=== PATIENT | male | born 1955 | race Caucasian/White ===

== ENCOUNTER → 2016-11-24 | Outpatient (CLI) | payer OTHER ==
[2016-11-24 14:37] LABS: ESTIMATED AVERAGE GLUCOSE 243 mg/dl; HA1C FLAG Normal (Normal)
[2016-11-24 15:25] LABS: ALT/SGPT 49 U/L (12-78); AST/SGOT 16 U/L (15-37); BLOOD UREA NITROGEN 17 mg/dl (7-18); BUN/CREATININE RATIO 15.6 (10-20); CALCIUM 8.7 mg/dl (8.5-10.1); CARBON DIOXIDE 29 mmol/L (21-32); CHLORIDE 106 mmol/L (98-107); CHOLESTEROL 161 mg/dl (0-200); GLUCOSE 228 mg/dl (70-99); POTASSIUM 3.6 mmol/L (3.5-5.1); SODIUM 143 mmol/L (136-145)
[2016-11-24 15:27] LABS: CHOLESTEROL/HDL RATIO 3.5; HDL CHOLESTEROL 46 mg/dl; LDL CHOLESTEROL CALCULATED 86 mg/dl; TRIGLYCERIDES 145 mg/dl (0-150); VERY LOW DENSITY LIPOPROT CALC 29 mg/dl
== END | disposition home or self-care (01) ==
LOC: C.LABMFLN 09:56
PROVIDERS: ATTEND Family Medicine
DX: I10 Essential (primary) hypertension (principal)

== ENCOUNTER → 2017-08-06 | Outpatient (CLI) | payer OTHER ==
[2017-08-06 13:49] LABS: HEMOGLOBIN A1C 9.5 % (4.5-5.6)
[2017-08-06 15:55] LABS: ALBUMIN 3.6 gm/dl (3.4-5.0); AST/SGOT 20 U/L (15-37); BLOOD UREA NITROGEN 16 mg/dl (7-18); CALCIUM 9.1 mg/dl (8.5-10.1); CARBON DIOXIDE 31 mmol/L (21-32); CHOLESTEROL 147 mg/dl (0-200); CREATININE 1.02 mg/dl (0.60-1.40); GLUCOSE 172 mg/dl (70-99); POTASSIUM 3.5 mmol/L (3.5-5.1); SODIUM 138 mmol/L (136-145)
[2017-08-06 15:58] LABS: ALKALINE PHOSPHATASE 69 U/L (45-117); ALT/SGPT 41 U/L (12-78); LDL CHOLESTEROL CALCULATED 74 mg/dl
== END | disposition home or self-care (01) ==
LOC: C.LABMFLN 07:30
PROVIDERS: ATTEND Family Medicine
DX: E11.9 Type 2 diabetes mellitus without complications (principal); I10 Essential (primary) hypertension

== ENCOUNTER 2025-01-25 15:28 | Inpatient (IN) ==
[2025-01-25] MEDS: SODIUM CHLORIDE 0.9% 500 ML IV ONE (16:18)
[2025-01-25 16:27] LABS: Hematocrit (blood only) 36.9 % (42.0-52.0); Hemoglobin 12.4 g/dl (14.0-18.0); Immature Granulocytes # (auto) 0.07 K/uL (0.01-0.20); Immature Granulocytes % (auto) 0.5 %; Mean Corpuscular Hemoglobin 29.2 pg (25.0-34.0); Mean Corpuscular Volume 87.0 fL (80.0-100.0); Platelet Count 192 K/uL (130-400); RDW Standard Deviation 42.0 fL (36.4-46.3); Red Blood Count 4.24 M/uL (4.70-6.10); White Blood Count 12.78 K/ul (4.8-10.8)
[2025-01-25] MEDS: SODIUM CHLORIDE 0.9% 1,000 ML IV SCH (16:37)
--- NOTE | 2025-01-25 16:40 | Emergency Department Note ---
Impression & Plan Acute UTI (urinary tract infection), Weakness, Nausea & vomiting ED Provider Note NAME: ISRAEL SHI AGE: 69 SEX: Male INFORMANT: Patient and family ED PROVIDER(S): Beck Doyle MD CHIEF COMPLAINT: Urinary symptoms PLAN: Disposition: Admitted Outpatient prescription management: none Referral: None MEDICAL DECISION MAKING: Patient presented because of urinary symptoms and increased symptoms concerning for systemic involvement. IV was established. Blood work obtained. Patient was not hypotensive. He did have a leukocytosis. Patient was found to be mildly dehydrated and had low magnesium level. Bilirubin was elevated but this has been the case in the past. Culture is still pending on his previous urinalysis. Patient did not suffer any significant injury from his fall. Patient underwent CT imaging of the abdomen pelvis. He was found to have a cystitis and enlarged prostate. His systemic symptoms are concerning that this may be ascending or even possibly bacteremic. Patient was treated with IV Rocephin. Blood cultures were obtained first and I discussed further evaluation and management in the hospital. Patient and family were in agreement. Consultation was made with the [facility] hospitalist service. Patient was evaluated in the ER and admitted for further management. Of note the patient's family was informed about the pulmonary nodule in the right. and daughter state that he follows with pulmonology and this is a known problem for him. Care/management discussed with: Hospitalist, manager mechanical Level of care consideration(s): After review of the information above and other included data, I feel the patient requires escalation of care to admission. Triage Nursing notes: reviewed and agree them. Vital Signs: reviewed and remarkable for no significant abnormalities Additional History obtained from: Family Chronic Medical/Social Conditions affecting care: none Prior/ Outside/ External records reviewed: none Differential Diagnosis: Infection, dehydration, metabolic abnormality, hypo/hyperglycemia, electrolyte disturbance, anemia, hypoxia, cardiac sources, intracerebral event, toxicologic, neurologic, as well as other pathologies. Diagnostics, independently interpreted by me: ECG: Twelve-lead ECG reveals a normal sinus rhythm at [address] abnormality. No ST elevation. Cardiac Monitoring: Cardiac monitoring ordered by me: The patient was placed on continuous cardiac monitoring and observed. It revealed a normal sinus rhythm at 86 beats per minute without ectopy or evidence of dysrhythmia. Medical decision rules: none Imaging studies: CT scan as above. HPI: 69 year old Male arrives for evaluation of urinary symptoms. Patient was seen very early this morning because of urinary retention. He had a Norris catheter placed and was diagnosed with a UTI. He was discharged on oral Bactrim. He did have a dose here and a another dose at home. Patient states he was not feeling well. He had an episode of nausea and vomiting. He became generally weak. He had a minor fall off of his tailgate where he was sitting but did not suffer any injury. He notes discomfort in the suprapubic region. This is his second episode of urinary retention and catheter placement. Overall patient also noted feeling feverish and chilled. Pt denies LOC, headache, visual changes, neck pain, chest pain, breathing difficulties, back pain, melena, hematochezia, numbness, weakness, lymphadenopathy, rash, or other complaints. PAST MEDICAL HISTORY: See Below, urinary retention, diabetes PAST SURGICAL HISTORY: See Below, SOCIAL HISTORY: See Below, HOME MEDICATIONS: See Below ALLERGIES: See Below VITALS: See Below PHYSICAL EXAMINATION: GENERAL: Awake, tired-appearing, in no distress HENT: Normocephalic, atraumatic. Oropharynx unremarkable. EYES: Normal conjunctiva. Sclera non-icteric. NECK: Inspection normal. Non-tender. Supple. No nuchal rigidity. FROM. No masses. RESPIRATORY: Clear to auscultation. No wheezes. No rales. Normal respiratory effort. CARDIAC: Normal rate. Normal rhythm. No murmurs. No rubs. Extremities warm and well perfused. Pulses equal. No JVD. GI: Soft, non-distended. Suprapubic tenderness to palpation. No rebound or guarding. No masses. RECTAL: Deferred. MUSCULOSKELETAL: Atraumatic. Chest examination reveals no tenderness. The back is symmetrical on inspection without obvious abnormality. There is no CVA tenderness to palpation. No joint edema. LOWER EXTREMITIES: Calves are equal size bilaterally and non-tender. 1+ edema. No discoloration. NEURO: Normal sensorium. No focal sensory or motor deficits noted. SKIN: No rash or jaundice noted. PROCEDURES: none CRITICAL CARE: none OBSERVATION NOTE: none Past Med/Surg History Problem List (Updated 01/25/25 @ 16:40 by Beck Doyle MD) Nausea & vomiting (Acute) Weakness (Acute) Acute UTI (urinary tract infection) (Acute) Acute UTI (Acute) Acute urinary retention (Acute) Hematuria (Acute) Acute urinary retention (Acute) Upper airway cough syndrome Spermatocele Erectile dysfunction Hydrocele Atherogenic dyslipidemia Aortic root enlargement S/P pneumonectomy Occasional tremors Memory loss Neuroendocrine carcinoma Encounter for pre-operative examination Pulmonary nodule Onychomycosis Dizziness of unknown etiology Colon cancer screening Cough Allergic rhinitis with postnasal drip Obesity Exertional shortness of breath Multiple pulmonary nodules Left upper lobe pulmonary nodule Anemia Mass of right lung Skin candidiasis Urinary incontinence BPH with obstruction/lower urinary tract symptoms HTN, goal below 140/80 (Chronic) Diabetes mellitus type II, controlled (Chronic) NIDDM Medical History Pulmonary nodule Onychomycosis Hx Hx of myocardial infarction Possible old infarct noted on 10/2022 ECG > PCP ordered stress test to further evaluation (done 11/2022) which was unremarkable BPH (benign prostatic hyperplasia) Obesity Surgical History History of lobectomy of lung LLL History of ankle surgery Reconstructive as child (r/t crush injury) History of tonsillectomy Family History Grandfather Myocardial infarction Denies family history of Ovarian cancer Prostate cancer Breast cancer Colorectal cancer Social History Smoking Status: Never smoker Second Hand Exposure: Yes (hx growing up); Do You Dip or Chew Tobacco: No; Hx Alcohol Use: Yes Hx Substance Use: No Preferred Language: Macanese Communication Ability: Effective Visual Impairment: No Limitations Hearing Ability: Normal Shellfish Checker Required: No Beliefs That Will Affect Care: None marital status: Current Living Situation: Spouse current occupational status: retired 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 Feels Safe at Home: Yes Dental Care, Regularly: No Physical Activity Frequency: Does not Exercise Seatbelt Use: sometimes Sunscreen Use: No Assistive Devices: Glasses Allergies Allergies Allergy/AdvReac Type Severity Reaction Status Date / Time lisinopril AdvReac cough Verified 12/21/24 11:44 Home Meds Home Medications Medication Instructions Recorded Confirmed mecobalamin (vitamin B12) 1,000 1,000 mcg PO QAM 08/24/20 08/27/25 mcg chewable tablet omega-3 fatty acids 1,000 mg 1,000 mg PO HS 01/23/20 01/25/25 capsule (Fish Oil Concentrate) Magnesium, Calcium, Zinc 1 tab PO QAM 08/26/23 01/25/25 cholecalciferol (vitamin D3) 25 25 mcg PO QAM 08/26/23 01/25/25 mcg (1,000 unit) capsule (Vitamin D3) multivitamin (Daily Multi-Vitamin 1 tab PO QAM 08/26/23 01/25/25 tablet) dulaglutide 4.5 mg/0.5 mL 4.5 mg subcut WK 01/25/25 01/25/25 subcutaneous pen injector (Trulicity) sitagliptin phosphate 50 1 tab PO BID 01/25/25 01/25/25 mg-metformin 1,000 mg tablet (Janumet) vitamin E acetate 500 mg PO DAILY 01/25/25 01/25/25 Previous Rx's Medication Instructions Recorded cranberry 500 mg capsule 500 mg PO DAILY #90 caps 01/03/19 lancets (OneTouch UltraSoft #50 ea 11/16/19 Lancets) blood sugar diagnostic (OneTouch #100 ea 02/08/24 Verio test strips) losartan 100 1 tab PO QAM #90 tabs 06/20/24 mg-hydrochlorothiazide 25 mg tablet fesoterodine 4 mg tablet,extended 4 mg PO DAILY #90 tabs 08/29/24 release 24 hr (Toviaz) mirabegron 50 mg tablet,extended 50 mg PO DAILY #30 tabs 11/04/24 release 24 hr (Myrbetriq) alfuzosin 10 mg tablet,extended 10 mg PO DAILY #90 tabs 11/22/24 release 24 hr amlodipine 10 mg tablet (Norvasc) 10 mg PO QAM #90 tabs 12/05/24 sulfamethoxazole 800 1 tab PO BID 10 days #20 tabs 01/25/25 mg-trimethoprim 160 mg tablet (Bactrim DS) Results & Data (ED) Vital Signs Vital Signs - 24 hr 01/25/25 15:32 Temperature 37.3 C Temperature Source Oral Pulse Rate 86 Respiratory Rate 18 Respiratory Effort / Characteristics Non-Labored Spontaneous Respiratory Depth Normal Respiratory Pattern Regular Blood Pressure 138/83 Blood Pressure Mean 101 Pulse Oximetry 96 Oxygen Delivery Method Room Air Sepsis Recent Fever Within 48 Hours No Sepsis New/Unexplained Change in Mental Status N/A Sepsis Action Taken by Nursing No Action Required Laboratory Data 01/25/25 16:05 01/25/25 16:05 Lab Results 01/25/25 Range/Units 16:05 WBC 12.78 H (4.8-10.8) K/ul RBC 4.24 L (4.70-6.10) M/uL Hgb 12.4 L (14.0-18.0) g/dl Hct 36.9 L (42.0-52.0) % MCV 87.0 (80.0-100.0) fL MCH 29.2 (25.0-34.0) pg MCHC 33.6 (32.0-36.0) g/dL RDW Std Deviation 42.0 (36.4-46.3) fL RDW Coeff of Latoya 13.4 (11.5-14.5) % Plt Count 192 (130-400) K/uL MPV 9.5 (9.4-12.4) fL Immature Gran % (Auto) 0.5 % Neut % (Auto) 86.3 % Lymph % (Auto) 6.8 % Tift % (Auto) 5.7 % Eos % (Auto) 0.5 % Baso % (Auto) 0.2 % Neut # (Auto) 11.02 H (1.40-6.50) K/uL Lymph # (Auto) 0.87 L (1.20-3.40) K/uL Tift # (Auto) 0.73 H (0.11-0.59) K/uL Eos # (Auto) 0.07 (0.00-0.50) K/uL Baso # (Auto) 0.02 (0.00-0.20) K/uL Immature Gran # (Auto) 0.07 (0.01-0.20) K/uL Sodium 137 (136-145) mmol/L Potassium 3.6 (3.5-5.1) mmol/L Chloride 97 L (98-107) mmol/L Carbon Dioxide 30 (21-32) mmol/L Anion Gap 10 (3-11) BUN 14 (6-23) mg/dl Creatinine 1.11 (0.6-1.4) mg/dl Est Cr Clr Drug Dosing 76.0 ml/min eGFR 71.44 BUN/Creatinine Ratio 12.6 (10-20) Glucose 264 H (70-99(Fasting)) mg/dl Lactate 1.4 (0.4-2.0) mmol/L Calcium 9.4 (8.6-10.3) mg/dl Magnesium 1.4 L (1.7-2.4) mg/dl Total Bilirubin 1.9 H (0.2-1.0) mg/dl AST 10 L (13-39) U/L ALT 8 (7-52) U/L Alkaline Phosphatase 86 (34-104) U/L Troponin I High Sens 9.4 (0-20) pg/ml Total Protein 7.4 (6.0-8.3) gm/dl Albumin 3.9 (3.4-5.0) gm/dl Globulin 3.5 (2.5-4.0) gm/dl Albumin/Globulin Ratio 1.1 (0.9-2) TSH 0.639 (0.300-4.500) uIu/ml Administered Medications Sodium Chloride (Nss) 1,000 mls @ 125 mls/hr IV .Q8H MARK Stop: 01/28/25 15:44 Last Admin: 01/25/25 16:37 Dose: 125 mls/hr Documented By: CAP Discontinued Medications Sodium Chloride (Nss) 500 mls @ 999 mls/hr IV .Q31M ONE Stop: 01/25/25 16:15 Last Infusion: 01/25/25 16:51 Dose: Infused Documented By: Admin: 01/25/25 16:18 Dose: 999 mls/hr Documented By: CAP Ceftriaxone Sodium (Rocephin) 2,000 mg in 50 mls @ 100 mls/hr IV NOW STA Stop: 01/25/25 16:53 Last Infusion: 01/25/25 17:22 Dose: Infused Documented By: Admin: 01/25/25 16:51 Dose: 100 mls/hr Documented By: CEF Magnesium Sulfate/Dextrose (Magnesium Sulfate / D5w) 1 gm in 100 mls @ 50 mls/hr IV ONE ONE Stop: 01/25/25 18:44 Last Admin: 01/25/25 17:22 Dose: 50 mls/hr Documented By: CEF Imaging Data Radiologist's Impression: Abdomen/Pelvis CT 01/25/25 16:24 CT ABDOMEN and PELVIS without INTRAVENOUS CONTRAST HISTORY: Abdominal pain TECHNIQUE: CT abdomen and pelvis without contrast. IV CONTRAST: None ENTERIC CONTRAST: None. COMPARISON: CT abdomen pelvis November 01, 2024 FINDINGS: LOWER CHEST: Mild cardiomegaly and small pericardial fluid, unchanged. Pulmonary nodular densities in the right upper and middle lobes measure up to 5 mm (series 2, image 1-17). LIVER: Small subcentimeter hypodensities are too small to characterize but likely represent cysts or hemangiomas. Hepatomegaly GALLBLADDER/BILIARY: Unremarkable gallbladder. No abnormal biliary dilatation. SPLEEN: Unremarkable. PANCREAS: Unremarkable. ADRENALS: Unremarkable. KIDNEYS: Redemonstrated large cortical and parapelvic cysts of the kidneys. The renal parenchyma is mildly atrophic. No stones or hydronephrosis identified. PERITONEUM/RETROPERITONEUM. No lymphadenopathy by size criteria. No aortic aneurysm. GASTROINTESTINAL: No obstruction. Normal appendix. REPRODUCTIVE: Prostamegaly with enlarged prostate impinging upon the urinary bladder outlet. URINARY BLADDER: Decompressed with Norris catheter in place. There are inflammatory changes to the uterine bladder with wall thickening and perivesical fat stranding. Small foci of intraluminal air likely relate to current instrumentation ABDOMINAL WALL: Small fat-containing inguinal and umbilical hernias. BONES: No acute findings. IMPRESSION: Prostamegaly with enlarged prostate impinging upon the urine bladder outlet. Urinary bladder is decompressed with Norris catheter in place. The urinary bladder is inflamed, in keeping with cystitis. No urolithiasis, hydronephrosis or hydroureter. Pulmonary nodular densities in the right lung measuring up to [address] thorax surveillance in 3 months Electronically signed by Tyler Chavez 01-25-2025 5:05 PM Discharge Plan Visit Data Chief Complaint: Urinary Symptoms Stated Complaint: URINARY PROBLEM ED Provider: Beck Doyle Discharge Problem: Acute UTI (urinary tract infection), Weakness, Nausea & vomiting Patient Disposition: Home - Self-Care Condition: Fair Forms Stand Alone Forms: [facility], Important Visit Information Prescriptions Prescriptions: No Action (DME) lancets [OneTouch UltraSoft Lancets] Misc See Rx Instructions .ROUTE .MEDSUPPLY Qty: 50 5RF Rx Instructions: As directed- once daily (DME) OneTouch Verio test strips Strip See Rx Instructions .ROUTE .MEDSUPPLY Qty: 100 3RF Rx Instructions: As directed- once daily E11.9 losartan-hydrochlorothiazide 100-25 mg tablet 1 tab PO QAM Qty: 90 3RF fesoterodine [Toviaz] 4 mg tablet extended release 24 hr 4 mg PO DAILY Qty: 90 3RF mirabegron [Myrbetriq] 50 mg tablet extended release 24 hr 50 mg PO DAILY Qty: 30 2RF amlodipine [Norvasc] 10 mg tablet 10 mg PO QAM Qty: 90 3RF cranberry 500 mg capsule 500 mg PO DAILY Qty: 90 3RF omega-3 fatty acids [Fish Oil Concentrate] 1,000 mg capsule 1,000 mg PO HS mecobalamin (vitamin B12) 1,000 mcg tablet,chewable 1,000 mcg PO QAM alfuzosin 10 mg tablet extended release 24 hr 10 mg PO DAILY Qty: 90 3RF Rx Instructions: administer after the same meal each day Janumet 50-1,000 mg tablet 1 tab PO BID Trulicity 4.5 mg/0.5 mL pen injector 4.5 mg subcut WK Rx Instructions: INJECT 4.5MG UNDER THE SKIN EVERY 7 DAYS vitamin E acetate 500 mg PO DAILY Magnesium, Calcium, Zinc 1 tab PO QAM multivitamin [Daily Multi-Vitamin] tablet 1 tab PO QAM cholecalciferol (vitamin D3) [Vitamin D3] 25 mcg (1,000 unit) Capsule 25 mcg PO QAM sulfamethoxazole-trimethoprim [Bactrim DS] 800-160 mg tablet 1 tab PO BID 10 Days Qty: 20 0RF Referrals Referrals: Micha Cunningham DO [Primary Care Provider] -
[2025-01-25 16:44] LABS: Alanine Aminotransferase 8.0 U/L (7-52); Albumin Globulin Ratio 1.1 (0.9-2); Alkaline Phosphatase 86.0 U/L (34-104); Anion Gap 10.0 (3-11); Bilirubin,Total 1.9 mg/dl (0.2-1.0); Blood Urea Nitrogen 14.0 mg/dl (6-23); Calcium 9.4 mg/dl (8.6-10.3); Carbon Dioxide 30.0 mmol/L (21-32); Chloride 97.0 mmol/L (98-107); Creatinine Clr Calc Pharmacy 76.0 ml/min; Globulin 3.5 gm/dl (2.5-4.0); Glucose 264.0 mg/dl (70-99(Fasting)); Magnesium 1.4 mg/dl (1.7-2.4); Potassium 3.6 mmol/L (3.5-5.1); Sodium 137.0 mmol/L (136-145); Total Protein 7.4 gm/dl (6.0-8.3)
[2025-01-25] MEDS: cefTRIAXone SODIUM 2,000 MG/50 ML BAG IV STA (16:51)
[2025-01-25 16:59] LABS: Thyroid Stimulating Hormone 0.639 uIu/ml (0.300-4.500)
--- NOTE | 2025-01-25 17:18 | CT Scan Report ---
CT ABDOMEN and PELVIS without INTRAVENOUS CONTRAST HISTORY: Abdominal pain TECHNIQUE: CT abdomen and pelvis without contrast. IV CONTRAST: None ENTERIC CONTRAST: None. COMPARISON: CT abdomen pelvis November 01, 2024 FINDINGS: LOWER CHEST: Mild cardiomegaly and small pericardial fluid, unchanged. Pulmonary nodular densities in the right upper and middle lobes measure up to 5 mm (series 2, image 1-17). LIVER: Small subcentimeter hypodensities are too small to characterize but likely represent cysts or hemangiomas. Hepatomegaly GALLBLADDER/BILIARY: Unremarkable gallbladder. No abnormal biliary dilatation. SPLEEN: Unremarkable. PANCREAS: Unremarkable. ADRENALS: Unremarkable. KIDNEYS: Redemonstrated large cortical and parapelvic cysts of the kidneys. The renal parenchyma is mildly atrophic. No stones or hydronephrosis identified. PERITONEUM/RETROPERITONEUM. No lymphadenopathy by size criteria. No aortic aneurysm. GASTROINTESTINAL: No obstruction. Normal appendix. REPRODUCTIVE: Prostamegaly with enlarged prostate impinging upon the urinary bladder outlet. URINARY BLADDER: Decompressed with Norris catheter in place. There are inflammatory changes to the uterine bladder with wall thickening and perivesical fat stranding. Small foci of intraluminal air likely relate to current instrumentation ABDOMINAL WALL: Small fat-containing inguinal and umbilical hernias. BONES: No acute findings. IMPRESSION: Prostamegaly with enlarged prostate impinging upon the urine bladder outlet. Urinary bladder is decompressed with Norris catheter in place. The urinary bladder is inflamed, in keeping with cystitis. No urolithiasis, hydronephrosis or hydroureter. Pulmonary nodular densities in the right lung measuring up to [address] thorax surveillance in 3 months Electronically signed by Tyler Chavez 01-25-2025 5:05 PM
[2025-01-25] MEDS: MAGNESIUM SULFATE / D5W 1 GM/100 ML BAG IV ONE (17:22)
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
[2025-01-25] MEDS: PHENAZOPYRIDINE HCL 200 MG TAB PO STA (19:27)
[2025-01-25] MEDS: MAGNESIUM SULFATE / D5W 1 GM/100 ML BAG IV SCH (19:30)
[2025-01-25] MEDS ORDERED: ONDANSETRON INJ 2 MG/ML 2 ML VIAL IV PRN (22:08)
[2025-01-25] MEDS ORDERED: PHENAZOPYRIDINE HCL 100 MG TAB PO PRN (22:08)
[2025-01-26] MEDS: INSULIN ASPART PER UNIT CHARGE SC SCH (00:07)
[2025-01-26 06:05] LABS: Anion Gap 10.0 (3-11); Calcium 8.6 mg/dl (8.6-10.3); Carbon Dioxide 24.0 mmol/L (21-32); Chloride 102.0 mmol/L (98-107); Magnesium 1.9 mg/dl (1.7-2.4); Potassium 3.4 mmol/L (3.5-5.1); Sodium 136.0 mmol/L (136-145)
[2025-01-26 06:11] LABS: Blood Urea Nitrogen 12.0 mg/dl (6-23); Creatinine Clr Calc Pharmacy 78.1 ml/min; Glucose 214.0 mg/dl (70-99(Fasting))
[2025-01-26 07:27] LABS: Hemoglobin A1C 11.3 % (4.5-5.6)
[2025-01-26] MEDS: CYANOCOBALAMIN (B-12) 500 MCG TABLET PO SCH (08:18)
[2025-01-26] MEDS: MULTIVITAMIN TAB PO SCH (08:19)
[2025-01-26] MEDS: OXYBUTYNIN CHLORIDE XL 5 MG TABCR PO SCH (08:19)
[2025-01-26] MEDS: CHOLECALCIFEROL 25 MCG (1000 UNITS) TAB PO SCH (08:19)
[2025-01-26] MEDS: VIBEGRON 75 MG TAB PO SCH (08:19)
[2025-01-26] MEDS: TAMSULOSIN HCL 0.4 MG CAP PO SCH (08:19)
--- NOTE | 2025-01-26 09:09 | Urology Consultation ---
<Statement entered by Dallin Jha MD - 01/26/25 12:17> 69-year-old male with urinary retention. Would maintain Norris catheter for now. Urology will coordinate outpatient follow-up and voiding trial. We will also try to follow-up with cystoscopy to evaluate for any underlying cause. Hematuria workup can be completed as an outpatient as well. Urine concerning for possible infection. Agree with broad-spectrum antibiotics, narrowing coverage as culture data becomes available. Date of Consultation January 26, 2025 Assessment & Plan (1) Acute urinary retention: (2) Hematuria: (3) Acute UTI (urinary tract infection): (4) Catheter-associated urinary tract infection: (5) BPH with obstruction/lower urinary tract symptoms: Plan 69-year-old male admitted for acute urinary retention, acute UTI, gross hematuria known to urology for BPH with LUTS. Labs-kidney function within normal limits- creatinine 1.08, patient had leukocytosis- 12.78, would recommend repeating CBC CT showed prostamegaly, cystitis with Norris catheter in place Blood and urine cultures are currently pending Discussed with patient risks of acute urine retention including deteriorating kidney function, infections Discussed reasons for retention including infections, constipation, BPH, medication side effect -discussed pending cause there can be multiple treatment options Recommend stopping any anticholinergics or beta 3 agonists for risk of of urine retention (currently on mirabegron) Recommend continuing antibiotics, currently on ceftriaxone, trend antibiotics according to culture data Continue Norris catheter management through treatment of infection, we will schedule outpatient voiding trial pending date of discharge Continue other medical management and care per primary team We will schedule outpatient urology follow-up for evaluation of gross hematuria including evaluation with cystoscopy Urology will follow peripherally, please contact our service for any questions or concerns Case was discussed with on-call urologist Dr. Jha History of Present Illness Attending Physician: Cash Almaraz MD History of Present Illness 69-year-old male who has been followed by urology for BPH with LUTS, ED, spermatocele. He has had two episodes of urinary retention in December, first reporting to the ER on 01/19/2025. He then came to the office for voiding trial on 01/24/2025 and passed. Unfortunately reported back to the ED on 01/25/2025 and needed an additional Norris catheter along with treatment with a UTI, he was started on oral Bactrim. He reported back to the ER the same day (01/25/2025 )in the afternoon due to nausea, fevers, weakness, suprapubic discomfort. Labs reviewed: 01/26/2025 Creatinine 1.08 Glucose 214 01/25/[address] 01/25/2025 redemonstrated large cortical parapelvic cysts, renal parenchyma is mildly atrophic. No stones or hydronephrosis. Prostamegaly with enlarged prostate impinging upon the urinary bladder. Decompressed bladder with Norris catheter in place. There are inflammatory changes to the bladder wall with thickening and perivesical stranding. Small foci of intraluminal air likely related to instrumentation. Urine and blood cultures from 01/25/2025 are all still pending Patient seen and examined at bedside. Resting comfortably in bed. He states that he had a Norris catheter replaced yesterday and began to feel weak with nausea well picking sweet corn so he reported back to the ER for further evaluation. This morning he has pain around the catheter site but denies fevers, chills, nausea, vomiting. He did admit to some gross hematuria after the second catheter placement. Allergies Allergy/AdvReac Type Severity Reaction Status Date / Time lisinopril AdvReac cough Verified 12/21/24 11:44 Home Medications Medication Instructions Recorded Confirmed Type cranberry 500 mg capsule 500 mg PO DAILY #90 caps 01/03/19 01/25/25 Rx lancets (SemantraTouch UltraSoft #50 ea 11/16/19 12/21/24 Rx Lancets) mecobalamin (vitamin B12) 1,000 1,000 mcg PO QAM 01/23/20 01/25/25 History mcg chewable tablet omega-3 fatty acids 1,000 mg 1,000 mg PO HS 01/23/20 01/25/25 History capsule (Fish Oil Concentrate) Magnesium, Calcium, Zinc 1 tab PO QAM 08/26/23 01/25/25 History cholecalciferol (vitamin D3) 25 25 mcg PO QAM 08/26/23 01/25/25 History mcg (1,000 unit) capsule (Vitamin D3) multivitamin (Daily Multi-Vitamin 1 tab PO QAM 08/26/23 01/25/25 History tablet) blood sugar diagnostic (SemantraTouch #100 ea 02/08/24 12/21/24 Rx Verio test strips) losartan 100 1 tab PO QAM #90 tabs 06/20/24 01/25/25 Rx mg-hydrochlorothiazide 25 mg tablet fesoterodine 4 mg tablet,extended 4 mg PO DAILY #90 tabs 08/29/24 01/25/25 Rx release 24 hr (Toviaz) mirabegron 50 mg tablet,extended 50 mg PO DAILY #30 tabs 11/04/24 01/25/25 Rx release 24 hr (Myrbetriq) alfuzosin 10 mg tablet,extended 10 mg PO DAILY #90 tabs 11/22/24 01/25/25 Rx release 24 hr amlodipine 10 mg tablet (Norvasc) 10 mg PO QAM #90 tabs 12/05/24 01/25/25 Rx dulaglutide 4.5 mg/0.5 mL 4.5 mg subcut WK 01/25/25 01/25/25 History subcutaneous pen injector (Trulicity) sitagliptin phosphate 50 1 tab PO BID 01/25/25 01/25/25 History mg-metformin 1,000 mg tablet (Janumet) sulfamethoxazole 800 1 tab PO BID 10 days #20 tabs 01/25/25 01/25/25 Rx mg-trimethoprim 160 mg tablet (Bactrim DS) vitamin E acetate 500 mg PO DAILY 01/25/25 01/25/25 History Patient History Medical History Pulmonary nodule Onychomycosis Hx Hx of myocardial infarction Possible old infarct noted on 10/2022 ECG > PCP ordered stress test to further evaluation (done 11/2022) which was unremarkable BPH (benign prostatic hyperplasia) Obesity Surgical History History of lobectomy of lung LLL History of ankle surgery Reconstructive as child (r/t crush injury) History of tonsillectomy Family History (Updated 01/26/25 @ 06:00 by Cash Almaraz MD) Grandfather Myocardial infarction Mother , in her 80s COPD (chronic obstructive pulmonary disease) with emphysema Denies family history of Ovarian cancer Prostate cancer Breast cancer Colorectal cancer Social History Smoking Status: Never smoker Second Hand Exposure: Yes (hx growing up); Do You Dip or Chew Tobacco: No; Hx Alcohol Use: Yes Hx Substance Use: No Preferred Language: Irish Communication Ability: Effective Visual Impairment: No Limitations Hearing Ability: Normal Medical Research Assistant Required: No Beliefs That Will Affect Care: None marital status: Current Living Situation: Spouse 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 Feels Safe at Home: Yes Safety Concerns: Feels Safe At This Time Dental Care, Regularly: No Physical Activity Frequency: Does not Exercise Seatbelt Use: sometimes Sunscreen Use: No Assistive Devices: None Review of Systems Constitutional: as per Subjective / HPI Genitourinary: + as per Subjective / HPI Physical Exam Constitutional: well developed and well nourished; no acute distress Respiratory: normal respiratory effort and able to speak in complete sentences Musculoskeletal: Extremities: extremities normal to inspection Psychiatric: Orientation: alert and oriented x 3 Genitourinary: Catheter draining sweet red Results & Data Vital Signs (Past 12 Hours) Vital Signs Pulse Pulse Resp BP BP Pulse Ox O2 Del Method 01/26/25 07:20 88 01/26/25 06:03 92 H 20 94 Room Air 01/26/25 06:00 140/84 01/26/25 05:00 135/85 01/26/25 05:00 91 H 92 Room Air 01/26/25 03:00 94 H 19 137/84 91 Room Air 01/26/25 02:27 92 H 17 137/84 93 Room Air 01/26/25 01:20 96 H 21 134/82 93 Room Air 01/26/25 01:00 92 H 20 134/82 92 Room Air 01/26/25 01:00 93 H 20 134/82 92 Room Air 01/26/25 00:00 92 H 26 H 133/81 93 01/25/25 23:30 142/80 H 01/25/25 23:30 94 H 26 H 92 01/25/25 23:21 94 H 22 92 01/25/25 23:12 94 H 22 94 01/25/25 23:04 94 H 01/25/25 23:03 94 H 20 92 01/25/25 23:00 92 H 23 134/83 92 Room Air 01/25/25 23:00 134/83 01/25/25 22:57 96 H 18 94 01/25/25 22:51 100 H 22 94 01/25/25 22:42 95 H 26 H 93 01/25/25 22:30 139/83 01/25/25 22:30 139/83 01/25/25 22:27 96 H 24 93 01/25/25 22:21 95 H 25 H 93 01/25/25 22:12 96 H 25 H 93 01/25/25 22:09 94 H 26 H 93 01/25/25 22:08 90 19 95 Room Air 01/25/25 22:00 146/85 H 01/25/25 22:00 146/85 H 01/25/25 21:30 133/82 01/25/25 21:30 133/82 01/25/25 21:30 133/82 01/25/25 21:21 96 H 25 H 91 01/25/25 21:15 95 H 25 H 92 PG Care Time/CCT Total # of Minutes Spent Total Time Spent with Patient: Total time spent is greater than 50% in coordination of care (as documented) at patient's floor/unit and/or counseling patient: Coding Level of Care Code 33097 IN/OBS CONSULT LVL 4,60M Diagnoses Acute urinary retention R33.8 Hematuria R31.9 Acute UTI (urinary tract infection) N39.0 Catheter-associated urinary tract infection T83.511A; N39.0 BPH with obstruction/lower urinary tract symptoms N40.1; N13.8 Comment Greater than 60 minutes precharting, time with patient, coordination of care, documents
[2025-01-26] MEDS ORDERED: GLUCAGON FOR INJ 1 MG VIAL SQ PRN (09:15)
[2025-01-26] MEDS ORDERED: DEXTROSE 50% 50 ML SYRINGE IV PRN (09:15)
[2025-01-26] MEDS ORDERED: GLUCOSE 40% GEL 15 GM TUBE PO PRN (09:15)
[2025-01-26] MEDS ORDERED: GLUCOSE 10 TAB/TUBE PO PRN (09:15)
[2025-01-26] MEDS ORDERED: CARBOHYDRATES FOR HYPOGLYCEMIA PO PRN (09:15)
[2025-01-26] MEDS: POTASSIUM CHLORIDE CRTAB 20 MEQ TABCR PO SCH (10:15)
[2025-01-26] MEDS: LANTUS PER UNIT CHARGE SQ SCH ×2 (10:15→20:55)
[2025-01-26 15:28] VITALS: RESP 18
[2025-01-26] MEDS: SODIUM CHLORIDE 0.9% 1,000 ML IV SCH (15:56)
[2025-01-26] MEDS: PHENAZOPYRIDINE HCL 100 MG TAB PO SCH (15:56)
[2025-01-26] MEDS: ACETAMINOPHEN 325 MG TAB PO PRN (17:14)
--- NOTE | 2025-01-26 17:31 | Electrocardiogram Report ---
Test Reason : Blood Pressure : */* mmHG Vent. Rate : 89 BPM Atrial Rate : 89 BPM P-R Int : 162 ms QRS Dur : 96 ms QT Int : 342 ms P-R-T Axes : 31 -12 -21 degrees QTcB Int : 416 ms Normal sinus rhythm Nonspecific T wave abnormality Abnormal ECG No previous ECGs available Confirmed by Kike Rodriguez ([id number]) on 01/26/2025 5:31:11 PM Referred By: REFERRED SELF Confirmed By: Kike Rodriguez
[2025-01-26] MEDS: cefTRIAXone SODIUM 2,000 MG/50 ML BAG IV SCH (18:06)
--- NOTE | 2025-01-26 20:42 | Hospitalist Progress Note ---
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 Presented to ER on 01/17 with severe urinary retention requiring velasquez insertion. Velasquez removed on 01/24 in [facility] office; presented back to [place] ER early AM of 01/25 with recurrent urinary retention and velasquez placed back. U/a early this AM c/w UTI; antibiotics started. Returned home but did not tolerate the bactrim and had fevers/chills prompting return to [place] ER. #catheter-associated UTI - -has had a velasquez off/on for the last 7+ days -thus, current UTI is in the setting of velasquez usage and known, severe BPH -day #2 of rocephin -urine cx with klebsiella - follow cx to completion -blood cx's dispatched; follow -cannot rule out component of prostatitis ; if present would potentially need up to 4 weeks of Rx #severe BPH with LUTS, urinary retention, need for velasquez catheter - -patient has been on alpha blockade and various meds for his bladder as well for quite some time -already follows with [facility] -CT a/p with severe BPH with impingement upon the bladder outlet -in light of his severe BPH I have to suspect he will need surgical intervention sometime in the future for the prostate -appreciate [facility] consultation -cont velasquez -stop bladder agents -treat UTI -add finasteride to his alpha jonh? 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 2023 [facility] - -known RLL lung nodules - patient aware of this, and is being followed by pulmonary #DVT proph - -if H/H remain stable, and if urine does not show gross hematuria, then add chemical DVT proph tomorrow request PT consult Admission and Anticipated Discharge Date Admission Date: January 25, 2025 Subjective patient still with dysuria and bladder discomfort appetite still poor we discussed his poorly controlled DM we discussed stopping his bladder agents ultimately lower abd pain is better no chills today overall feels weak Review of Systems Review of Systems: cv - no chest pain pulm - no dyspnea Physical Exam Physical Exam: gen - lying in bed, looks better today HENT - MMM, no lesions neck - no JVD heart - RRR, s1 s2, 2/6 JULIA LSB lungs - CTA b/l abd - soft, NT, ND, BS+, no HSM - velasquez catheter still with purulent urine ext - no edema b/l, pulses b/l feet 2+ psych - a/o x 3 Results & Data Results & Data Vital Signs (Past 12 Hours) Vital Signs Temp Pulse Pulse Resp BP BP Pulse Ox 01/26/25 15:26 37.8 C H 76 18 123/77 95 01/26/25 13:42 78 15 140/88 98 01/26/25 11:00 81 24 135/85 93 01/26/25 09:00 83 24 142/94 H 92 O2 Del Method 01/26/25 15:26 Room Air 01/26/25 13:42 Room Air 01/26/25 11:00 Room Air 01/26/25 09:00 Laboratory Results Laboratory Results - last 24 hr 01/25/25 01/25/25 01/26/25 16:05 23:32 04:26 Sodium 136 Potassium 3.4 L Chloride 102 Carbon Dioxide 24 Anion Gap 10 BUN 12 Creatinine 1.08 Est Cr Clr Drug Dosing 78.1 eGFR 73.82 BUN/Creatinine Ratio 11.1 Glucose 214 H POC Glucose 221 H Estimat Average Glucose 278 Hemoglobin A1c 11.3 H Calcium 8.6 Magnesium 1.9 01/26/25 01/26/25 01/26/25 07:32 11:29 17:01 Sodium Potassium Chloride Carbon Dioxide Anion Gap BUN Creatinine Est Cr Clr Drug Dosing eGFR BUN/Creatinine Ratio Glucose POC Glucose 238 H 262 H 157 H Estimat Average Glucose Hemoglobin A1c Calcium Magnesium Diagnostic Findings Urine Culture: Spec: [id number] Collected: 01/25/25 Received: 01/25/[address]: Cande Dewitt DOdin Source: Urine,Straight Cath OV Order: Ordered: Urine Culture Procedure Result Verified Site Urine Culture Preliminary 01/26/25-1221 Organism 1 Klebsiella variicola [place] Count >100,000 CFU/ml Sens Sensitivities to Follow PG Care Time/CCT Total # of Minutes Spent Total Time Spent with Patient: Total time spent is greater than 50% in coordination of care (as documented) at patient's floor/unit and/or counseling patient: Coding Level of Care Code 23321 SUB INP/OBS CARE 3/50MIN Diagnoses Catheter-associated urinary tract infection T83.511A; N39.0 Acute urinary retention R33.8 BPH with obstruction/lower urinary tract symptoms N40.1; N13.8 Diabetes mellitus type II, controlled E11.9 Hypomagnesemia E83.42 Pulmonary nodule R91.1 Essential hypertension I10
[2025-01-27 07:16] LABS: Hematocrit (blood only) 31.0 % (42.0-52.0); Hemoglobin 10.8 g/dl (14.0-18.0)
[2025-01-27 07:34] LABS: Anion Gap 6.0 (3-11); Blood Urea Nitrogen 9.0 mg/dl (6-23); Calcium 8.1 mg/dl (8.6-10.3); Carbon Dioxide 26.0 mmol/L (21-32); Chloride 106.0 mmol/L (98-107); Creatinine Clr Calc Pharmacy 84.4 ml/min; Glucose 185.0 mg/dl (70-99(Fasting)); Potassium 3.8 mmol/L (3.5-5.1); Sodium 138.0 mmol/L (136-145)
[2025-01-27] MEDS: HEPARIN SOD 5,000 UNIT/0.5 ML VIAL SQ SCH (09:28)
--- NOTE | 2025-01-27 16:53 | Hospitalist Progress Note ---
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 Presented to ER on 01/17 with severe urinary retention requiring velasquez insertion. Velasquez removed on 01/24 in [facility] office; presented back to [place] ER early AM of 01/25 with recurrent urinary retention and velasquez placed back. U/a early this AM c/w UTI; antibiotics started. Returned home but did not tolerate the bactrim and had fevers/chills prompting return to [place] ER. #catheter-associated UTI - -has had a velasquez off/on for the last 7+ days -thus, current UTI is in the setting of velasquez usage and known, severe BPH -day #3 of rocephin -urine cx with klebsiella as noted in this note -blood cx's remain negative -cannot rule out component of prostatitis ; if present would potentially need up to 4 weeks of Rx -plan to transition to PO Cipro tomorrow - 500mg BID x 7 days -will need urology f/u and can defer to them about extending the course, if needed, for prostatitis coverage #severe BPH with LUTS, urinary retention, need for velasquez catheter - -patient has been on alpha blockade and various meds for his bladder as well for quite some time -already follows with [facility] -CT a/p with severe BPH with impingement upon the bladder outlet -in light of his severe BPH I have to suspect he will need surgical intervention sometime in the future for the prostate -appreciate [facility] consultation -cont velasquez -stop bladder agents -treat UTI #hypomagnesemia - -s/p replacement and now normal -2nd to chronic HCTZ usage and poor po intake #HTN - -hold amlodipine -hold losartan-HCTZ -BPs acceptable without them #T2DM - -a1c 11.3% -BSGs still high -increase lantus to 15 units BID -cont novolog SSI -resume metformin 1gm BID -hold Trulicity -stop januvia #bladder pain/spasm/dysuria - -cont scheduled pyridium 100mg TID -oxybutinin while here, then stop at d/c -stop chronic bladder agents at the recommendation of urology -norco prn #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 2023 [facility] - -known RLL lung nodules - patient aware of this, and is being followed by pulmonary #DVT proph - -heparin TID PT eval appreciated; did well; can return home at d/c updated at bedside d/c home tomorrow am Admission and Anticipated Discharge Date Admission Date: January 25, 2025 Subjective patient feeling overall much better appetite improved walking the hallways w/o difficulty no suprapubic pain does c/o low back pain which is chronic for him Review of Systems Review of Systems: gen - no fevers or chills cv - no chest pain pulm - no dyspnea or KIM GI - no N/V Physical Exam Physical Exam: gen - sitting at side of bed, NAD, looks well HENT - MMM, no lesions neck - no JVD heart - RRR, s1 s2, 2/6 JULIA LSB lungs - CTA b/l abd - soft, NT, ND, BS+, no HSM back - tender paraspinal areas of l-spine - velasquez catheter in place, urine is clearing nicely ext - no edema b/l, pulses b/l feet 2+ psych - a/o x 3 Results & Data Results & Data Vital Signs (Past 12 Hours) Vital Signs Temp Pulse Resp BP Pulse Ox O2 Del Method 01/27/25 15:27 37.5 C 84 18 139/85 96 Room Air 01/27/25 07:30 37.2 C 77 18 119/70 95 Room Air Laboratory Results Laboratory Results - last 48 hr 01/27/25 01/27/25 01/27/25 07:00 07:32 11:50 Hgb 10.8 L Hct 31.0 L Sodium 138 Potassium 3.8 Chloride 106 Carbon Dioxide 26 Anion Gap 6 BUN 9 Creatinine 1.00 Est Cr Clr Drug Dosing 84.4 eGFR 80.97 BUN/Creatinine Ratio 9.0 L Glucose 185 H POC Glucose 200 H 196 H Calcium 8.1 L 08/29/25 16:46 Hgb Hct Sodium Potassium Chloride Carbon Dioxide Anion Gap BUN Creatinine Est Cr Clr Drug Dosing eGFR BUN/Creatinine Ratio Glucose POC Glucose 135 H Calcium Diagnostic Findings Microbiology 01/25/25 16:05 Blood Aerobic Blood Culture - Preliminary No growth in Aerobic bottle after 48 hours. 01/25/25 16:05 Blood Anaerobic Blood Culture - Preliminary No growth in Anaerobic bottle after 48 hours. 01/25/25 16:05 Blood Aerobic Blood Culture - Preliminary No growth in Aerobic bottle after 48 hours. 01/25/25 16:05 Blood Anaerobic Blood Culture - Preliminary No growth in Anaerobic bottle after 48 hours. Urine Culture Final 01/27/25-0941 Organism 1 Klebsiella variicola [place] Count >100,000 CFU/ml Sens Sensitivities to Follow Jax hughes[facility] --- --------- Amikacin S <=16 Amox/Clav S <=8/4 Amp/Sul S <=4/2 Cefazolin S <=2 Cefepime S <=2 Cefotaxime S <=2 Cefoxitin S <=8 Ceftriaxone S <=1 Cefuroxime S <=4 Ciprofloxacin S <=0.25 Ertapenem S <=0.5 Gentamicin S <=2 Levofloxacin S <=0.5 Meropenem S <=1 Nitrofurantoin S <=32 Tobramycin S <=2 Trimeth/Sulfa S <=0.5/9.5 Pip/Tazo S <=8 S = SENSITIVE I = INTERMEDIATE R = RESISTANT PG Care Time/CCT Total # of Minutes Spent Total Time Spent with Patient: Total time spent is greater than 50% in coordination of care (as documented) at patient's floor/unit and/or counseling patient: Coding Level of Care Code 51780 SUB INP/OBS CARE 2/35MIN Diagnoses Catheter-associated urinary tract infection T83.511A; N39.0 Acute urinary retention R33.8 BPH with obstruction/lower urinary tract symptoms N40.1; N13.8 Diabetes mellitus type II, controlled E11.9 Hypomagnesemia E83.42 Pulmonary nodule R91.1 Essential hypertension I10
[2025-01-27] MEDS: KETOROLAC TROMETHAMINE 15 MG/ML VIAL IV ONE (17:09)
[2025-01-27] MEDS: HYDROCODONE/ACETAMOPHEN 5/325MG TAB PO PRN (17:09)
[2025-01-28 07:06] VITALS: TEMP 98.2; O2SAT 93
[2025-01-28 09:18] VITALS: BP 145/81
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
[2025-01-28 10:09] VITALS: PULSE 84
== END 2025-01-28 11:14 | disposition home or self-care (01) | DRG 699 ==
LOC: ED 15:28 → EDINP 19:06 → 3N 22:09